=== PATIENT | female | born 1980 | race Caucasian/White ===

== ENCOUNTER 2019-02-03 18:22 | Emergency (ER) | payer OTHER ==
--- NOTE | 2019-02-03 18:46 | Emergency Department Record ---
History of Present Illness - General Chief complaint: Extremity Problem Stated complaint: RIGHT ARM PAIN Time Seen by Provider: 02/03/19 18:40 Source: Patient Mode of Arrival: Ambulatory Limitations: No limitations - History of Present Illness Initial comments: 38 yo female presents to ED for evaluation of pain to the right upper arm that began this morning. Patient reports pain throughout the right biceps muscle, denies specific injury, but does report a history of psoriatic arthritis. Patient also reports that she is recovering from pneumonia. reports that she just finished taking Levaquin and Prednisone for her symptoms. Patient reports that her Mobic is not helping with her pain symptoms, reports that she is unable to sleep due to the pain. MD Complaint: Extremity pain Onset/Timin -: Days(s) Location: Right, Arm History of Same: No -: Yes Myalgia Radiation: Proximal Quality: Aching Consistency: Constant Improves with: Rest Worsens with: Other (Movement) Associated Symptoms: Denies other symptoms - Related Data Home Medications Medication Instructions Recorded Confirmed Last Taken Meloxicam [Mobic] 15 mg PO DAILY 02/03/19 02/03/19 02/03/19 Methotrexate Sodium [Trexall] 10 mg PO DAILY 02/03/19 02/03/19 02/03/19 Previous Rx's Medication Instructions Recorded Diazepam [Valium] 5 mg PO QHS PRN #5 tab 02/03/19 Naproxen [Naprosyn] 500 mg PO Q12H #30 tablet 02/03/19 Allergies Allergy/AdvReac Type Severity Reaction Status Date / Time Penicillins Allergy PT UNSURE Verified 02/03/19 18:40 OF REACTION Review of Systems Constitutional: Denies: Chills, Fever, Malaise, Night sweats Eyes: Denies: Eye discharge, Eye pain ENT: Denies: Congestion, Ear pain, Epistaxis Respiratory: Denies: Cough, Dyspnea Cardiovascular: Denies: Chest pain, Dyspnea on exertion Endocrine: Denies: Fatigue, Heat or cold intolerance Gastrointestinal: Denies: Abdominal pain Genitourinary: Denies: Incontinence, Retention Musculoskeletal: Reports: Myalgia. Denies: Arthralgia, Back pain, Gout, Joint swelling Skin: Reports: Bruising Neurological: Denies: Abnormal gait, Confusion, Headache, Numbness, Tingling, Tremors Hematological/Lymphatic: Denies: Anemia Physical Exam - General General Appearance: Alert, Oriented x3, Cooperative, Moderate distress Limitations: No limitations - Head Head exam: Atraumatic, Normocephalic Head exam detail: negative: Abrasion, Contusion, Frazier's sign, General tenderness, Hematoma, Laceration - Eye Eye exam: Normal appearance. negative: Conjunctival injection, Periorbital swelling, Periorbital tenderness, Scleral icterus - ENT Ear exam: negative: Auricular hematoma, Auricular trauma Nasal Exam: negative: Active bleeding, Discharge, Dried blood, Foreign body Mouth exam: negative: Drooling, Laceration, Muffled voice, Tongue elevation - Neck Neck exam: Normal inspection. negative: Meningismus, Tenderness - Respiratory Respiratory exam: Normal lung sounds bilaterally. negative: Respiratory distress, Rhonchi, Stridor, Wheezes - Cardiovascular Cardiovascular Exam: Regular rate, Normal rhythm, Normal heart sounds Peripheral Pulses: 3+: Radial (R) - Rectal Rectal exam: Deferred - exam: Deferred - Extremities Extremities exam: Tenderness, Other (TTP diffusely along the medial aspect of the right upper arm, distal tendon attachment at the elbow feels intact, small area of bruising is present to the upper 1/3 medially as well. Compartments of the upper arm and forearm are soft on exmaination, strong distal radial pulse is present. [employer] strength appears limited by pain. ). negative: Calf tenderness, Pedal edema - Back Back exam: Denies: CVA tenderness (R), CVA tenderness (L) - Neurological Neurological exam: Alert, Normal gait, Oriented X3 - Psychiatric Psychiatric exam: Normal affect, Normal mood - Skin Skin exam: Normal color. negative: Abrasion Type of lesion: negative: abrasion Course - Reevaluation(s) Reevaluation #1: 02/03/19 18:54 Patient was seen and examined. Pain reproducible with palpation of the biceps muscle diffusely Small area of bruising is present to the upper 1/3 of the upper arm medially, ? from partial biceps tear. Patient denies trauma or injury, radiographs are unlikely to be of benefit. US does not appear to be of benefit. Given the patient's history of recent levaquin and prednisone use, absence of trauma or injury, and absence of diffuse myalgias suggesting rhabdomyolysis, partial biceps tendon tear/strain appears most likely. Will place in splint, prescribe Naprosyn as she reports that her Mobis is not helping, and Valium as needed at night to assist in sleep. Will place consult for orthopedic evaluation with Dr. Tinajero in the [facility] next week. Patient is in agreement with the plan of care as discussed. Disposition Disposition: Discharge Clinical Impression: Biceps strain Qualifiers: Encounter type: initial encounter Laterality: right Qualified Code(s): S46.211A - Strain of muscle, fascia and tendon of other parts of biceps, right arm, initial encounter Disposition: Home, Self-Care Condition: (2) Stable Instructions: Tendinitis (ED) Additional Instructions: Return to ED if your symptoms worsen or if you have any concerns. Naprosyn and Valium as directed. Follow-up with Dr. Tinajero in the [facility] specialty clinic next week. Prescriptions: Diazepam [Valium] 5 mg PO QHS PRN #5 tab PRN Reason: Pain - Severe (8-10) Naproxen [Naprosyn] 500 mg PO Q12H #30 tablet Referrals: JIMENA TINAJERO [DOCTOR OF OSTEOPATH] - [facility] Special[facility] [Provider Group] Forms: Patient Portal Access Time of Disposition: 18:46 Quality - Quality Measures Quality Measures: N/A - Blood Pressure Screening Does Patient Have Any of the Following: No Blood Pressure Classification: Hypertensive Reading Systolic Measurement: 122 Diastolic Measurement: 91 Screening for High Blood Pressure: < First Hypertensive BP, F/U Documented > [ [id number]] First Hypertensive Follow-up Interventions: Referral to alternative/primary care provider.
== END 2019-02-03 18:55 | disposition home or self-care (01) ==
LOC: ER 18:22
DX: S46.211A Strain of muscle, fascia and tendon of other parts of biceps, right arm, initial encounter (principal); X58.XXXA Exposure to other specified factors, initial encounter; F17.210 Nicotine dependence, cigarettes, uncomplicated
CPT/HCPCS: 99282; 99283